=== PATIENT | male | born 1980 | race Caucasian/White ===

== ENCOUNTER 2018-05-28 07:40 | Day surgery (SDC) | payer OTHER | END 2018-05-28 10:15 | disposition home or self-care (01) | LOC: AMB-ENDOS 07:40 | DX: K64.1 Second degree hemorrhoids (principal) ==

== ENCOUNTER 2018-08-17 07:23 | Day surgery (SDC) | payer OTHER ==
[2018-08-17] MEDS ORDERED: COLACE100 MG PO (11:39)
[2018-08-17] MEDS ORDERED: PERCOCET 5-3251 EACH PO (11:39)
== END 2018-08-17 20:10 | disposition home or self-care (01) ==
LOC: CIR.AMB 07:23
DX: K64.8 Other hemorrhoids (principal)